=== PATIENT | female | born 1975 | race African-American/Black ===

== ENCOUNTER 2017-06-15 15:46 | Emergency (ER) | payer OTHER ==
[~2017-06-15] VITALS: Ht 170.2 cm; Wt 87.0 kg
[~2017-06-15 15:46] MED LIST: (None)3.5 GM OP; ACIPHEX20 MG PO; ALPRAZOLAM1 MG PO; BACTRIM DS1 TAB PO; CARAFATE PO; CIPRO XR500 MG OR; CIPROFLOXACN500 MG PO; GENTAMICIN15 ML/BTL OP; HYDROCHLOROT25 MG PO; HYZAAR1 TA1 PO; HYZAAR1 TA2 OR; LEVOTHYROXIN50 MCG PO; LEVOTHYROXIN75 MC1 PO; LISINOPRIL10 MG PO; MAXZIDE-2537.5 MG/TA PO; MOTRIN400 MG PO; MULTIVITAMI9 PO; NAPROSYN500 MG PO; NORCO1 TA2 PO; NORVASC PO; NORVASC10 M1 PO; NYSTATIN100000 M4 TOP; ORTHO TRI-CY PO; PANTOPRAZOLE SO40 MG PO; PRILOSEC20 MG PO; PYRIDIUM200 MG OR; PYRIDIUM200 MG PO; SUCRALFATE1 GM PO; SYNTHROID PO; TH VITAMIN B PO; TRI-SPRINTEC OR; TYLENOL # 31 TA1 PO; ULTRAM50 M1 PO; [UNRECOGNIZED DRUG - OTHER] PO
[2017-06-15 16:33] LABS: INFLUENZA A NONE DETECTED (NONE DETECT); INFLUENZA B NONE DETECTED (NONE DETECT)
[2017-06-15] MEDS ORDERED: BACTRIM DS1 TAB PO (16:42)
[2017-06-15] MEDS ORDERED: MOTRIN800 MG PO (16:42)
[2017-06-15 16:45] VITALS: BP 149/74
== END 2017-06-15 16:45 | disposition home or self-care (01) | DRG 153 ==
LOC: ED 15:46
PROVIDERS: Emergency Medicine
DX: J32.9 Chronic sinusitis, unspecified (principal); R05 Cough; R09.81 Nasal congestion; R50.9 Fever, unspecified; R51 Headache

== ENCOUNTER 2017-08-17 07:21 | Emergency (ER) | payer OTHER ==
[~2017-08-17] VITALS: Ht 170.2 cm; Wt 80.0 kg
[~2017-08-17 07:21] MED LIST changes: +MOTRIN800 MG PO
[2017-08-17 08:22] LABS: URINE BILIRUBIN - DIPSTICK NEGATIVE (NEGATIVE); URINE BLOOD DIPSTICK NEGATIVE (NEGATIVE); URINE COLOR YELLOW; URINE GLUCOSE - DIPSTICK NEGATIVE (NEGATIVE); URINE KETONE NEGATIVE (NEGATIVE); URINE LEUK ESTERASE NEGATIVE (NEGATIVE); URINE NITRITE - DIPSTICK NEGATIVE (Negative); URINE PH 7.5 (4.5-8.0); URINE PROTEIN - DIPSTICK NEGATIVE (NEG-TRACE); URINE SPECIFIC GRAVITY 1.015
[2017-08-17 08:32] LABS: INFLUENZA A NONE DETECTED (NONE DETECT); INFLUENZA B NONE DETECTED (NONE DETECT)
[2017-08-17 08:35] LABS: URINE CLARITY CLEAR
[2017-08-17] MEDS ORDERED: TAM75CAP PO (08:38)
[2017-08-17 08:42] VITALS: BP 135/93
== END 2017-08-17 08:49 | disposition home or self-care (01) | DRG 153 ==
LOC: ED 07:21
PROVIDERS: Family Medicine
DX: J11.1 Influenza due to unidentified influenza virus with other respiratory manifestations (principal); E07.9 Disorder of thyroid, unspecified; E11.9 Type 2 diabetes mellitus without complications; I10 Essential (primary) hypertension

== ENCOUNTER 2018-01-24 17:01 | Emergency (ER) | payer OTHER ==
[~2018-01-24] VITALS: Ht 170.2 cm; Wt 88.2 kg
[~2018-01-24 17:01] MED LIST changes: +TAM75CAP PO
[2018-01-24 17:09] VITALS: BP 142/102
[2018-01-24] MEDS ORDERED: LISINOPRIL2.5 MG PO (17:13)
[2018-01-24 18:43] LABS: INFLUENZA A NONE DETECTED (NONE DETECT); INFLUENZA B NONE DETECTED (NONE DETECT)
[2018-01-24] MEDS ORDERED: ZPAK PO (18:53)
[2018-01-25] MEDS ORDERED: AMLODIPINE5 MG PO (13:00)
== END 2018-01-24 19:02 | disposition home or self-care (01) | DRG 153 ==
LOC: ED 17:01
DX: J02.0 Streptococcal pharyngitis (principal); E11.9 Type 2 diabetes mellitus without complications; I10 Essential (primary) hypertension; E07.9 Disorder of thyroid, unspecified

== ENCOUNTER 2018-01-25 11:26 | Emergency (ER) | payer OTHER ==
[~2018-01-25 11:26] MED LIST changes: +LISINOPRIL2.5 MG PO; +ZPAK PO
[2018-01-25] MEDS ORDERED: AMLODIPINE5 MG PO (13:00)
== END 2018-01-25 11:54 | disposition left against medical advice (07) | DRG 951 ==
LOC: ED 11:26 → LWOBS 11:53
DX: Z91.19 Patient's noncompliance with other medical treatment and regimen (principal)

== ENCOUNTER 2018-01-25 12:51 | Emergency (ER) | payer OTHER ==
[~2018-01-25] VITALS: Ht 170.2 cm; Wt 84.5 kg
[2018-01-25] MEDS ORDERED: AMLODIPINE5 MG PO (13:00)
[2018-01-25 14:19] VITALS: BP 130/88
== END 2018-01-25 14:26 | disposition home or self-care (01) | DRG 103 ==
LOC: ED 12:51
DX: R51 Headache (principal); J02.0 Streptococcal pharyngitis; I10 Essential (primary) hypertension; E11.9 Type 2 diabetes mellitus without complications; E07.9 Disorder of thyroid, unspecified; F41.9 Anxiety disorder, unspecified; K21.9 Gastro-esophageal reflux disease without esophagitis

== ENCOUNTER 2018-03-24 21:58 | Emergency (ER) | payer OTHER ==
[~2018-03-24] VITALS: Ht 170.2 cm; Wt 81.8 kg
[~2018-03-24 21:58] MED LIST changes: +AMLODIPINE5 MG PO
[2018-03-24] MEDS ORDERED: METOPROL TAR25 MG PO (22:29)
[2018-03-25 00:09] LABS: HEMATOCRIT 38.3 % (37.0-47.0); HEMOGLOBIN 12.6 g/dl (12.0-16.0); IMMATURE GRANULOCYTES 0.1 % (0.0-5.0); MEAN CELL VOLUME 94.8 fL CALC (80.0-100.0); MEAN CORPUSCULAR HGB 31.2 pG CALC (26.0-32.0); MEAN CORPUSCULAR HGB CONC 32.9 g/L CALC (32.0-36.0); NEUT# 4.1 thou/uL (2.00-7.15); RED BLOOD COUNT 4.04 mill/uL (4.20-5.60); RED CELL DISTRI WIDTH 13.7 % (11.5-15.5)
[2018-03-25 00:11] LABS: URINE BILIRUBIN - DIPSTICK NEGATIVE (NEGATIVE); URINE BLOOD DIPSTICK MODERATE (NEGATIVE); URINE COLOR YELLOW; URINE GLUCOSE - DIPSTICK NEGATIVE (NEGATIVE); URINE KETONE NEGATIVE (NEGATIVE); URINE LEUK ESTERASE NEGATIVE (NEGATIVE); URINE NITRITE - DIPSTICK NEGATIVE (Negative); URINE PH 6.5 (4.5-8.0); URINE PROTEIN - DIPSTICK NEGATIVE (NEG-TRACE); URINE UROBILINOGEN - DIPSTICK 0.2 E.U./dL (0.2)
[2018-03-25 00:14] LABS: URINE CLARITY CLOUDY
[2018-03-25 00:15] LABS: ALKALINE PHOSPHATASE 74 u/l (38-126); ANION GAP 11 (6-22 (CALC)); BILIRUBIN, TOTAL 0.4 mg/dL (0.0-1.4); BUN 8 mg/dL (7-17); BUN/CREATININE RATIO 12 (12-20 (CALC)); CARBON DIOXIDE 26 mmol/l (22-30); CHLORIDE 108 mmol/l (95-108); CREATININE 0.7 mg/dL (0.5-1.0); GFR > 60 ML/MIN (>=60 (CALC)); GFR FOR AFR.AMER. > 60 ML/MIN (>=60 (CALC)); POTASSIUM 3.2 mmol/l (3.5-5.1); SGOT/AST 19 u/l (14-36); SODIUM 142 mmol/l (137-146); TOTAL PROTEIN 7.4 g/dL (6.3-8.2)
[2018-03-25 00:18] LABS: BARBITURATES NEGATIVE (NEGATIVE); COCAINE NEGATIVE (NEGATIVE); METHADONE NEGATIVE (NEGATIVE); OXCYCODONE NEGATIVE (NEGATIVE); TETRAHYDROCANNABIONOL NEGATIVE (NEGATIVE); TRICYLIC ANTIDEPRESSANTS NEGATIVE (NEGATIVE)
[2018-03-25 00:19] LABS: URINE BACTERIA FEW hpf; URINE BACTERIA MODERATE hpf; URINE SQUAMOUS EPITHELIAL CELL MANY EPI/hpf (0-FEW)
[2018-03-25 00:46] LABS: TSH, 3RD GENERATION 4.23 uIU/mL (0.47 - 4.68)
[2018-03-25 01:40] VITALS: BP 119/68
[2018-03-25] MEDS ORDERED: CIPROFLOXACN500 MG PO (03:13)
== END 2018-03-25 01:40 | disposition home or self-care (01) | DRG 305 ==
LOC: ED 21:58
PROVIDERS: Emergency Medicine
DX: I10 Essential (primary) hypertension (principal); N39.0 Urinary tract infection, site not specified; E11.9 Type 2 diabetes mellitus without complications; F41.9 Anxiety disorder, unspecified; K21.9 Gastro-esophageal reflux disease without esophagitis; E07.9 Disorder of thyroid, unspecified

== ENCOUNTER 2018-11-10 19:29 | Emergency (ER) | payer OTHER ==
[~2018-11-10] VITALS: Ht 167.6 cm; Wt 84.5 kg
[~2018-11-10 19:29] MED LIST changes: +METOPROL TAR25 MG PO
[2018-11-10] MEDS ORDERED: AMLODIPINE2.5 MG PO (19:56)
[2018-11-10 21:49] LABS: HEMATOCRIT 44.2 % (37.0-47.0); HEMOGLOBIN 14.3 g/dl (12.0-16.0); IMMATURE GRANULOCYTES 0.4 % (0.0-5.0); MEAN CELL VOLUME 94.8 fL CALC (80.0-100.0); MEAN CORPUSCULAR HGB 30.7 pG CALC (26.0-32.0); MEAN CORPUSCULAR HGB CONC 32.4 g/L CALC (32.0-36.0); NEUT# 3.31 thou/uL (2.00-7.15); RED BLOOD COUNT 4.66 mill/uL (4.20-5.60); RED CELL DISTRI WIDTH 13.7 % (11.5-15.5)
[2018-11-10 21:53] LABS: HCG SERUM/URINE (NEG/POS) NEGATIVE (NEGATIVE)
[2018-11-10 21:53] LABS: URINE BILIRUBIN - DIPSTICK NEGATIVE (NEGATIVE); URINE BLOOD DIPSTICK LARGE (NEGATIVE); URINE COLOR YELLOW; URINE GLUCOSE - DIPSTICK NEGATIVE (NEGATIVE); URINE KETONE NEGATIVE (NEGATIVE); URINE LEUK ESTERASE NEGATIVE (NEGATIVE); URINE NITRITE - DIPSTICK NEGATIVE (Negative); URINE PROTEIN - DIPSTICK NEGATIVE (NEG-TRACE); URINE SPECIFIC GRAVITY 1.015
[2018-11-10 22:11] LABS: ALBUMIN 4.3 g/dL (3.2-5.0); AMYLASE 86 u/l (30-110); ANION GAP 14 (6-22 (CALC)); BUN 13 mg/dL (7-17); BUN/CREATININE RATIO 20 (12-20 (CALC)); CARBON DIOXIDE 28 mmol/l (22-30); CHLORIDE 103 mmol/l (95-108); CREATININE 0.6 mg/dL (0.5-1.0); GFR > 60 ML/MIN (>=60 (CALC)); GFR FOR AFR.AMER. > 60 ML/MIN (>=60 (CALC)); LIPASE 169 u/l (23-300); POTASSIUM 3.4 mmol/l (3.5-5.1); SODIUM 141 mmol/l (137-146); TOTAL PROTEIN 7.7 g/dL (6.3-8.2)
[2018-11-10 22:12] LABS: URINE SQUAMOUS EPITHELIAL CELL FEW EPI/hpf (0-FEW); URINE WBC 0-2 WBC/hpf (0-5)
[2018-11-10 22:12] LABS: ALKALINE PHOSPHATASE 130 u/l (38-126); BILIRUBIN, TOTAL 0.6 mg/dL (0.0-1.4); SGOT/AST 176 u/l (14-36)
[2018-11-10 23:30] VITALS: BP 133/84
[2018-11-10] MEDS ORDERED: ULTRAM50 M1 PO (23:41)
== END 2018-11-10 23:55 | disposition home or self-care (01) | DRG 392 ==
LOC: ED 19:29
PROVIDERS: Emergency Medicine
DX: K29.70 Gastritis, unspecified, without bleeding (principal); N83.202 Unspecified ovarian cyst, left side; B34.9 Viral infection, unspecified; R94.5 Abnormal results of liver function studies; R10.13 Epigastric pain; R50.9 Fever, unspecified
CPT/HCPCS: Q9967

== ENCOUNTER 2019-06-23 | Emergency (ER) | payer OTHER ==
[~2019-06-23] MED LIST changes: +AMLODIPINE2.5 MG PO
[2019-06-23 10:52] LABS: HEMATOCRIT 38.3 % (37.0-47.0); HEMOGLOBIN 12.7 g/dl (12.0-16.0); IMMATURE GRANULOCYTES 0.2 % (0.0-5.0); MEAN CELL VOLUME 93.9 fL CALC (80.0-100.0); MEAN CORPUSCULAR HGB 31.1 pG CALC (26.0-32.0); MEAN CORPUSCULAR HGB CONC 33.2 g/L CALC (32.0-36.0); NEUT# 3.02 thou/uL (2.00-7.15); RED BLOOD COUNT 4.08 mill/uL (4.20-5.60); RED CELL DISTRI WIDTH 14.5 % (11.5-15.5)
[2019-06-23 11:07] LABS: ALBUMIN 4.2 g/dL (3.2-5.0); ANION GAP 15 (6-22 (CALC)); BILIRUBIN, TOTAL 0.4 mg/dL (0.0-1.4); BUN 11 mg/dL (7-17); BUN/CREATININE RATIO 14 (12-20 (CALC)); CARBON DIOXIDE 24 mmol/l (22-30); CHLORIDE 102 mmol/l (95-108); CREATININE 0.8 mg/dL (0.5-1.0); GFR > 60 ML/MIN (>=60 (CALC)); GFR FOR AFR.AMER. > 60 ML/MIN (>=60 (CALC)); POTASSIUM 3.3 mmol/l (3.5-5.1); SODIUM 138 mmol/l (137-146); TOTAL PROTEIN 7.9 g/dL (6.3-8.2)
[2019-06-23] MEDS ORDERED: APRESOLINE25 MG/TAB PO (11:07)
[2019-06-23 11:14] LABS: ALKALINE PHOSPHATASE 61 u/l (38-126); SGOT/AST 32 u/l (14-36)
== END 2019-06-23 15:12 | disposition home or self-care (01) | DRG 313 ==
PROVIDERS: Family Medicine
DX: R07.9 Chest pain, unspecified (principal); I10 Essential (primary) hypertension; E11.9 Type 2 diabetes mellitus without complications; K21.9 Gastro-esophageal reflux disease without esophagitis

== ENCOUNTER 2019-10-25 20:19 | Emergency (ER) | payer OTHER ==
[~2019-10-25 20:19] MED LIST changes: +APRESOLINE25 MG/TAB PO
[2019-10-25] MEDS ORDERED: FERROUS SULF324 M1 PO (21:38)
[2019-10-25] MEDS ORDERED: K-TAB20 MEQ PO (21:39)
[2019-10-25] MEDS ORDERED: BYSTOLIC5 MG PO (21:40)
[2019-10-25 22:33] VITALS: BP 158/98
== END 2019-10-25 22:32 | disposition home or self-care (01) | DRG 305 ==
LOC: ED 20:19
DX: I10 Essential (primary) hypertension (principal); E11.9 Type 2 diabetes mellitus without complications

== ENCOUNTER 2019-11-09 07:15 | Emergency (ER) | payer OTHER ==
[~2019-11-09 07:15] MED LIST changes: +BYSTOLIC5 MG PO; +FERROUS SULF324 M1 PO; +K-TAB20 MEQ PO
[2019-11-09] MEDS ORDERED: AMLODIPINE BES2.5 MG (07:44)
[2019-11-09] MEDS ORDERED: ENALAPRIL10 MG PO (07:44)
[2019-11-09] MEDS ORDERED: NEXIUM40 MG PO (07:45)
[2019-11-09] MEDS ORDERED: CYANOCOBAL1000 MCG/M (07:46)
[2019-11-09 07:51] LABS: HEMATOCRIT 44.2 % (37.0-47.0); HEMOGLOBIN 14.4 g/dl (12.0-16.0); IMMATURE GRANULOCYTES 0.2 % (0.0-5.0); MEAN CELL VOLUME 95.7 fL CALC (80.0-100.0); MEAN CORPUSCULAR HGB 31.2 pG CALC (26.0-32.0); MEAN CORPUSCULAR HGB CONC 32.6 g/dL CAL (32.0-36.0); NEUT# 3.19 thou/uL (2.00-7.15); RED BLOOD COUNT 4.62 mill/uL (4.20-5.60); RED CELL DISTRI WIDTH 14.7 % (11.5-15.5)
[2019-11-09 08:03] LABS: ALBUMIN 4.4 g/dL (3.2-5.0); ALKALINE PHOSPHATASE 43 u/l (38-126); ANION GAP 14 (6-22 (CALC)); BILIRUBIN, TOTAL 0.5 mg/dL (0.0-1.4); BUN 10 mg/dL (7-17); BUN/CREATININE RATIO 15 (12-20 (CALC)); CARBON DIOXIDE 24 mmol/l (22-30); CHLORIDE 105 mmol/l (95-108); CREATININE 0.6 mg/dL (0.5-1.0); GFR > 60 ML/MIN (>=60 (CALC)); GFR FOR AFR.AMER. > 60 ML/MIN (>=60 (CALC)); POTASSIUM 4.1 mmol/l (3.5-5.1); SGOT/AST 26 u/l (14-36); SODIUM 139 mmol/l (137-146); TOTAL PROTEIN 8.3 g/dL (6.3-8.2)
[2019-11-09] MEDS ORDERED: PREDNISONE50 MG PO (10:35)
[2019-11-09] MEDS ORDERED: EPIPEN 2-P0.3 MG/0.3 IM (10:35)
[2019-11-09 10:45] VITALS: BP 103/69
== END 2019-11-09 10:45 | disposition left against medical advice (07) | DRG 916 ==
LOC: ED 07:15
PROVIDERS: Family Medicine
DX: T78.3XXA Angioneurotic edema, initial encounter (principal); E11.9 Type 2 diabetes mellitus without complications; I10 Essential (primary) hypertension; Z91.19 Patient's noncompliance with other medical treatment and regimen

== ENCOUNTER 2021-10-29 09:02 | Emergency (ER) | payer MEDICAID ==
[~2021-10-29] VITALS: Ht 167.6 cm; Wt 80.0 kg
[~2021-10-29 09:02] MED LIST changes: +AMLODIPINE BES2.5 MG; +CYANOCOBAL1000 MCG/M; +ENALAPRIL10 MG PO; +EPIPEN 2-P0.3 MG/0.3 IM; +NEXIUM40 MG PO; +PREDNISONE50 MG PO
[2021-10-29 09:11] VITALS: BP 127/92
[2021-10-29 10:00] VITALS: BP 130/86
[2021-10-29 10:34] VITALS: BP 120/89
[2021-10-29] MEDS ORDERED: BENADRYL25 M1 PO (10:50)
[2021-10-29] MEDS ORDERED: MEDDOSEPAK PO (10:50)
[2021-10-29 10:59] VITALS: BP 120/89
== END 2021-10-29 11:03 | disposition home or self-care (01) ==
LOC: ED 09:02
DX: T78.3XXA Angioneurotic edema, initial encounter (principal); I10 Essential (primary) hypertension; E11.9 Type 2 diabetes mellitus without complications; F41.9 Anxiety disorder, unspecified; K21.9 Gastro-esophageal reflux disease without esophagitis

== ENCOUNTER 2022-02-12 08:06 | Emergency (ER) | payer MEDICAID ==
[~2022-02-12] VITALS: Ht 167.6 cm; Wt 79.5 kg
[~2022-02-12 08:06] MED LIST changes: +BENADRYL25 M1 PO; +MEDDOSEPAK PO
[2022-02-12] MEDS ORDERED: DOXY-CAPS100 MG PO (08:32)
[2022-02-12] MEDS ORDERED: PREDNISONE50 MG PO (08:32)
[2022-02-12] MEDS ORDERED: ALLERGY RELF10 M3 PO (08:32)
[2022-02-12] MEDS ORDERED: EPIPEN 2-P0.3 MG/0.3 IM (08:38)
[2022-02-12 08:41] VITALS: BP 132/65
== END 2022-02-12 08:46 | disposition home or self-care (01) ==
LOC: ED 08:06
DX: R22.0 Localized swelling, mass and lump, head (principal); T49.4X5A Adverse effect of keratolytics, keratoplastics, and other hair treatment drugs and preparations, initial encounter; E11.9 Type 2 diabetes mellitus without complications; I10 Essential (primary) hypertension; F41.9 Anxiety disorder, unspecified; K21.9 Gastro-esophageal reflux disease without esophagitis

== ENCOUNTER 2022-03-23 10:58 | Emergency (ER) | payer MEDICAID ==
[~2022-03-23] VITALS: Ht 167.6 cm; Wt 75.0 kg
[~2022-03-23 10:58] MED LIST changes: +ALLERGY RELF10 M3 PO; +DOXY-CAPS100 MG PO
[2022-03-23 11:12] VITALS: BP 129/91
[2022-03-23 11:15] VITALS: BP 112/78
[2022-03-23] MEDS ORDERED: PREDNISONE50 MG PO (11:27)
[2022-03-23] MEDS ORDERED: TOBREX OPTH5 ML/BTL OU (11:27)
[2022-03-23 11:30] VITALS: BP 118/82
[2022-03-23 11:45] VITALS: BP 111/79
[2022-03-23 11:56] VITALS: BP 111/79
== END 2022-03-23 11:56 | disposition home or self-care (01) ==
LOC: ED 10:58
DX: H02.841 Edema of right upper eyelid (principal); E11.9 Type 2 diabetes mellitus without complications; I10 Essential (primary) hypertension; F41.9 Anxiety disorder, unspecified; K21.9 Gastro-esophageal reflux disease without esophagitis

== ENCOUNTER 2024-01-10 09:03 | Emergency (ER) | payer OTHER ==
[2024-01-10] VITALS (15 sets, daily range): BP systolic 116–141; BP diastolic 77–97
[~2024-01-10] VITALS: Ht 167.6 cm; Wt 92.0 kg
[~2024-01-10 09:03] MED LIST changes: +TOBREX OPTH5 ML/BTL OU
[2024-01-10 09:55] LABS: BASO% 0.7 % (0-3); HEMATOCRIT 38.7 % (37.0-47.0); HEMOGLOBIN 12.8 g/dl (12.0-16.0); IMMATURE GRANULOCYTES 0.2 % (0.0-5.0); LYMPH% 29.3 % (15-41); MEAN CELL VOLUME 95.1 fL CALC (80.0-100.0); MEAN CORPUSCULAR HGB 31.4 pG CALC (26.0-32.0); MEAN CORPUSCULAR HGB CONC 33.1 g/dL CAL (32.0-36.0); MONO% 7.6 % (2-13); NEUT# 3.63 thou/uL (2.00-7.15); NEUT% 61.2 % (42-76); RED BLOOD COUNT 4.07 mill/uL (4.20-5.60); RED CELL DISTRI WIDTH 14.4 % (11.5-15.5)
[2024-01-10 10:02] LABS: ALBUMIN 4.1 g/dL (3.2-5.0); BILIRUBIN, TOTAL 0.4 mg/dL (0.02-1.3); CREATININE 0.7 mg/dL (0.5-1.0); POTASSIUM 3.6 mmol/l (3.5-5.1); TOTAL PROTEIN 7.5 g/dL (6.3-8.2)
== END 2024-01-10 12:35 | disposition home or self-care (01) | DRG 103 ==
LOC: ED 09:03
PROVIDERS: Family Medicine
DX: R51.9 Headache, unspecified (principal); I10 Essential (primary) hypertension; E11.9 Type 2 diabetes mellitus without complications; K21.9 Gastro-esophageal reflux disease without esophagitis; F41.9 Anxiety disorder, unspecified; Z20.822 Contact with and (suspected) exposure to COVID-19